=== PATIENT | female | born 1965 | race Caucasian/White ===

== ENCOUNTER 2017-06-02 21:17 | Emergency (ER) | payer OTHER ==
[2017-06-02 21:23] VITALS: TEMP 37; Ht 170.2 cm
[2017-06-02] MEDS ORDERED: ONDANSETRON 4MG OD TAB PO STA (21:33)
[2017-06-02] MEDS ORDERED: HYDROCODONE/ACETAMOPHEN 5/325MG TAB PO STA (21:33)
--- NOTE | 2017-06-02 21:39 | EMERGENCY ROOM VISIT NOTE ---
ED Visit Note First contact with patient: 21:27 CHIEF COMPLAINT: Ankle pain HISTORY OF PRESENT ILLNESS: This 51-year-old female patient presents to the emergency department 5 hours after sustaining an injury to the right ankle and foot with a twisting, inversion motion when she stepped off of a curb. The patient complains of pain along the outside of the ankle. The patient denies pain of the foot. The patient rates the pain as severe and 8/10. The patient is not able to bear weight on the foot. Constant pain, worse with movement, weight bearing, and the dependent position. No knee pain, the patient is able to move their toes. No numbness or weakness of the foot, no laceration. The patient has not had a previous fracture to this ankle. The patient has taken ibuprofen for the pain. The patient denies any other injury. REVIEW OF SYSTEMS: A 6 system review of systems was completed with positives and pertinent negatives listed in the HPI. ALLERGIES: No known drug allergies MEDICATIONS: Reviewed PMH: Eczema SOCIAL HISTORY: Denies tobacco use, occasional EtOH PHYSICAL EXAM: Vital Signs: Reviewed Nurse's notes, vital signs stable. GENERAL : 51-year-old female, no acute distress, but appears in pain, well-developed, well-nourished. MENTAL STATUS: Alert, oriented to person place and time, and cooperative. MUSCULOSKELETAL: The right ankle is swollen and tender over the lateral malleolus, but the skin is intact and there is no ligamentous instability. There is no fifth metatarsal tenderness. There is no tenderness over the rest of the foot. There is no calf or tibia/fibular tenderness. There is no visual deformity. The foot and toes are warm and well-perfused. Dorsalis pedis pulse 2+. Sensation to pain and light touch is intact. Capillary refill less than 2 seconds. EMERGENCY DEPARTMENT COURSE: I examined the patient. The patient was ordered one [place] and Zofran for pain and nausea prevention. X-rays of the right ankle were reviewed IMPRESSION: 1. Acute minimally distracted transverse fibular tip fracture. In addition, possible nondisplaced vertical fracture through the distal shaft of the right fibula. 2. No ankle mortise widening. No distal right tibial fracture. Electronically signed by: Ryan Phelps M.D. 06/02/2017 9:49 PM Dictated Date/Time: 06/02/2017 9:46 PM The status of this report is Signed. Draft = Not yet reviewed or approved by Radiologist. Signed = Reviewed and approved by Radiologist. <AttendingPhy></AttendingPhy> <FamilyPhy>No Doctor, Assigned</FamilyPhy> < PrimaryPhy>No Doctor, Assigned</PrimaryPhy> <UnitNumber>[id number]</UnitNumber> <VisitNumber>[id number]</VisitNumber> <PatientName>TAMANNA ABAD</ PatientName> <DateOfBirth>1965</DateOfBirth> <Location>[facility]</Location> < ServiceDate>06/02/17</ServiceDate> <MNE>ESINDI</MNE> <OrderingPhy>Olivia Ohara Posterior Ortho-Glass splint was applied to the ankle under my direction and the position was satisfactory. Neurovascular status was rechecked and intact. The patient was instructed on the use of crutches. The patient was discharged home in good condition. DIAGNOSIS: Right ankle fracture DISCHARGE INSTRUCTIONS: Please ice the ankle for 20 minute intervals over the next 48 hours. Elevate as much as possible. Please leave the Ortho-Glass splint in place. Do not get wet. Use crutches to get around. No weightbearing on the right ankle until follow- up with orthopedics. Call Monday morning for a follow-up appointment. A number has been provided. Ibuprofen 800 mg every 8 hours. Please do not exceed 2400 mg in a 24-hour period [place] 1-2 tabs every 4 hours for severe pain. Do not drink alcohol or drive while taking this medication. This may be taken with ibuprofen, but avoid Tylenol. I also recommend a stool softener such as Colace (docusate), which is sold over the counter while taking this medication Please return to the emergency department with any new or worsening symptoms This chart was completed in part utilizing [employer] Speech Voice Recognition software. Attempts were made to minimize the grammatical errors, random word insertions, pronoun errors and incomplete sentences. Any formal questions or concerns about the content, text or information contained within the body of this dictation should be directly addressed to the provider for clarification.
--- NOTE | 2017-06-02 21:51 | DIAGNOSTIC IMAGING REPORT ---
R ANKLE MIN 3 VIEWS ROUTINE CLINICAL HISTORY: Right lateral ankle pain following injury. COMPARISON: None FINDINGS: Note is made of an acute minimally distracted transverse fracture through the fibular tip. In addition, fracture extension through the distal shaft of the right fibula is suspected. No acute fracture of the distal right tibia is identified and there is no ankle mortise widening. A bone island within the metaphysis of the right tibia is incidentally noted. There is moderate lateral ankle soft tissue swelling. IMPRESSION: 1. Acute minimally distracted transverse fibular tip fracture. In addition, possible nondisplaced vertical fracture through the distal shaft of the right fibula. 2. No ankle mortise widening. No distal right tibial fracture. Electronically signed by: Ryan Phelps M.D. 06/02/2017 9:49 PM Dictated Date/Time: 06/02/2017 9:46 PM
[2017-06-02] MEDS ORDERED: ONDA4TAB10 SL (22:02)
[2017-06-02] MEDS ORDERED: HYDR-5688 PO (22:02)
[2017-06-02] MEDS ORDERED: BUPR100T5 PO (22:18)
[2017-06-02] MEDS ORDERED: DESV50TA PO (22:18)
[2017-06-02 22:53] VITALS: BP 120/76; PULSE 99; O2SAT 97
== END 2017-06-02 22:55 | disposition home or self-care (01) ==
LOC: C.EDB 21:22 → C.EDD 22:55
DX: S82.891A Other fracture of right lower leg, initial encounter for closed fracture (principal); X58.XXXA Exposure to other specified factors, initial encounter